=== PATIENT | male | born 1960 | race Caucasian/White ===

== ENCOUNTER 2020-11-10 10:52 | Outpatient (CLI) | payer OTHER, SELFPAY ==
--- NOTE | ~2020-11-10 | XR_ITS ---
EXAMINATION: XR foot LT min 3V EXAM DATE: 11/10/2020 11:29 INDICATION: No known recent injury provided at this time. Pain of the left foot. TECHNIQUE: Left foot dorsoplantar, lateral and oblique projections obtained and reviewed. There is n o prior study for comparison. FINDINGS: Left metatarsal bones unremarkable. There are no bony erosions identified. There is mild 1st metatarsophalangeal joint primary osteoarthritis. There are no acute fractures or dislocations id entified. There is no subcutaneous gas. The soft tissue is unremarkable. There are no radiopaque foreign bodies. No periosteal reaction or band of sclerosis to suggest subacute stress fracture. IMPRESSION: Mild left 1st MTP osteoarthritis. Reviewed, dictated and finalized at location A.
--- NOTE | ~2020-11-10 | CT_ITS ---
EXAMINATION: CT lung screening EXAM DATE: 11/10/2020 11:32 INDICATION: Tobacco use. TECHNIQUE: Spiral low dose CT of the chest without contrast. Axial, coronal and sagittal images were reviewed. The dose-length product (DLP) for this examination was 106.72 mGy-cm. The exposure was t ailored according to patient size (auto mA exposure control), and iterative reconstruction (ASIR) was used as additional dose reduction technique. Comparison is made to prior examination from 01/12/2018. FINDINGS: Biapical scarring unchanged. There is mild to moderate amount of irregular septal thickeni ng seen with peripheral bibasilar predominance and areas of groundglass opacity, more pronounced than in 2018. Likely chronic process, consistent with Nonspecific Interstitial Pneumonitis (NSIP) pattern interstitial lung disease with many possible underlying etiologies including collagen vascular disea se, medications/drugs, prior viral infection (such as COVID), hypersensitivity pneumonitis, idiopathi c etiologies. There is mild emphysema. Tracheobronchial tree is patent. There is no mediastinal, hilar or axillar y lymphadenopathy. There are no pleural or pericardial effusions. There is no pneumothorax. Francine gs are moderately hyperinflated. Narrow cardiac silhouette. No evidence of coronary arterial calcifi cation. Upper abdomen is unremarkable. There is mild thoracic spondylosis without osteoblastic or o steolytic lesions identified. IMPRESSION: 1. Lung-RADS category 1S, negative (<1%chance of malignancy); recommend continued LDCT screening in 1 year. 2. Mild to moderate NSIP pattern interstitial lung disease. Reviewed, dictated and finalized at location A. IMPRESSION: 1. Lung-RADS category 1S, negative (<1%chance of malignancy); recommend contin ued LDCT screening in 1 year. 2. Mild to moderate NSIP pattern interstitial lung disease.
--- NOTE | ~2020-11-10 | XR_ITS ---
EXAMINATION: XR chest 2V DATE: 11/10/2020 11:29 INDICATION: Tobacco use. Hypertension. TECHNIQUE: Frontal and lateral views of the chest were obtained. COMPARISON: Chest single view 01/11/2018, chest CT 11/10/2020 FINDINGS: There is mild scarring at the lung apices. There are reticular opacities in the lower lung zones. No pleural effusion or pneumothorax. The heart size is normal. There is an old healed right ri b fracture. IMPRESSION: 1. Reticular opacities in the lower lung zones, consistent with mild atelectasis versus chronic lung disease. 2. Stable mild scarring at the lung apices. Reviewed, dictated and finalized at location A. IMPRESSION: 1. Reticular opacities in the lower lung zones, consistent with mild atelectasi s versus chronic lung disease. 2. Stable mild scarring at the lung apices.
--- NOTE | ~2020-11-10 | XR_ITS ---
EXAMINATION: XR foot RT min 3V EXAM DATE: 11/10/2020 11:29 INDICATION: No known recent injury provided at this time. Pain of the right foot TECHNIQUE: Right foot dorsoplantar, lateral and oblique projections obtained and reviewed. There is no prior study for comparison. FINDINGS: Right metatarsal bones unremarkable. There is mild 1st metatarsophalangeal joint primary o steoarthritis. There are no bony erosions identified. There are no acute fractures or dislocations i dentified. There is no subcutaneous gas. The soft tissue is unremarkable. There are no radiopaque foreign bodies. IMPRESSION: Mild right 1st MTP osteoarthritis. Reviewed, dictated and finalized at location A.
== END 2020-11-10 10:53 | disposition home or self-care (01) ==
PROVIDERS: PCP Emergency Medicine; Visit Provider Emergency Medicine
DX: Z12.2 Encounter for screening for malignant neoplasm of respiratory organs (principal); Z87.891 Personal history of nicotine dependence; J84.9 Interstitial pulmonary disease, unspecified; M19.072 Primary osteoarthritis, left ankle and foot; M19.071 Primary osteoarthritis, right ankle and foot; R91.8 Other nonspecific abnormal finding of lung field
CPT/HCPCS: 71046; 71271; 73630

== ENCOUNTER → 2021-02-19 12:24 | Outpatient (CLI) | payer OTHER, SELFPAY ==
--- NOTE | ~2021-02-19 | XR_ITS ---
XR forearm LT 2V DATE: 02/19/2021 12:36 INDICATION: Posterior forearm bony nodule TECHNIQUE: AP and lateral views of the left forearm COMPARISON: None FINDINGS: No fracture or dislocation, periosteal reaction or bone destruction is detected. No other s ignificant bony or soft tissue abnormality of the left forearm. IMPRESSION: No significant bony or soft tissue abnormality of the left forearm Reviewed, dictated and finalized at location A.
== END ==
PROVIDERS: PCP Emergency Medicine; Visit Provider Emergency Medicine
DX: M85.831 Other specified disorders of bone density and structure, right forearm (principal)
CPT/HCPCS: 73090

== ENCOUNTER 2021-03-28 15:24 | Emergency (ER) | payer OTHER, SELFPAY ==
--- NOTE | ~2021-03-28 | XR_ITS ---
XR ankle RT min 3V DATE: 03/28/2021 16:19 INDICATION: Injury, swelling of right ankle TECHNIQUE: 4 views COMPARISON: None FINDINGS: There is mild medial soft tissue swelling of the ankle. No fracture or dislocation of the ankle or disruption of the ankle mortise is detected. No periosteal reaction or bone destruction. IMPRESSION: Mild medial soft tissue swelling; no fracture or dislocation Reviewed, dictated and finalized at location A.
--- NOTE | 2021-03-28 15:31 | ED.EXTPRO ---
HPI - Extremity Problem General Chief complaint: Extremity Injury, Lower Stated complaint: RIGHT FOOT PAIN Time Seen by Provider: 03/28/21 15:32 Source: patient and RN notes reviewed Mode of arrival: ambulatory Limitations: no limitations History of Present Illness HPI Narrative: 60-year-old male presents with concern for right ankle pain, redness, swelling. Reports a day ago he tripped on a rug injuring the ankle. Reports he recently got out of wearing a boot for heel spur. He denies any open skin, lacerations, abrasions. Denies intervention for the injury. MD Complaint: extremity pain Related Data Home Medications Medication Instructions Recorded Confirmed ergocalciferol (vitamin D2) 03/28/21 folic acid 03/28/21 hydrochlorothiazide 03/28/21 leflunomide mg 03/28/21 meloxicam 03/28/21 methotrexate sodium 03/28/21 Allergies Allergy/AdvReac Type Severity Reaction Status Date / Time No Known Allergies Allergy Verified 03/28/21 15:45 Review of Systems Review of Systems: CONSTITUTIONAL: Denies malaise, chills, sweats, or fever. SKIN: Denies abrasions, lacerations MUSCULOSKELETAL: Reports warmth, redness, swelling to the posterior right ankle, reports pain exacerbated by flexion and extension of the ankle, flexion and extension of the digits NEUROLOGIC: Denies numbness, weakness All systems reviewed & are unremarkable except as noted in HPI and below PMFSH Comments At time of signature, agree with nursing past medical, surgical, social and family history. There is no relevant family history pertinent to the presenting complaint Exam Narrative: GENERAL: Well-appearing, well-nourished, and in no acute distress. HEAD: Normocephalic, atraumatic. EYES: PERRLA, conjunctivae clear NECK: Supple. CHEST: Speaks in full sentences. No respiratory distress. HEART: Regular rate and rhythm. Normal and equal peripheral pulses. EXTREMITIES: Right ankle has normal strength and sensation, normal range of motion. Moderate posterior edema and erythema. No ecchymosis. 4/5 strength with ankle flexion and extension. Normal sensation with sensitivity to light touch and pain. Posterior ankle tenderness. No open wounds, no skin tenting, no devitalized tissue or atrophy, no trophic changes, no obvious deformity, alignment normal, nearby joints and structures intact. Distal pulses palpable and equal bilaterally, skin warm, dry, pink. Capillary refill less than 3 seconds. SKIN: Warm, dry, no rash. NEURO: Alert and oriented x3. PSYCH: Normal mood and affect Course Course Emergency Course: Patient is aware of diagnosis, understands and agrees to treatment plan. Anticipatory guidance given. Patient agrees to follow-up as directed and is aware of reasons to seek care at the emergency department. Portions of this record may have been created with voice recognition software Vital Signs Vital signs: Vital Signs Temperature 98.7 F 03/28/21 15:34 Pulse Rate 103 H 03/28/21 15:34 Respiratory Rate 18 03/28/21 15:34 Blood Pressure 152/84 H 03/28/21 15:34 Pulse Oximetry 97 03/28/21 15:34 Temperature 98.7 F 03/28/21 15:34 Pulse Rate 103 H 03/28/21 15:34 Respiratory Rate 18 03/28/21 15:34 Blood Pressure 152/84 H 03/28/21 15:34 Pulse Oximetry 97 03/28/21 15:34 Reviewed. MDM - Extremity (Nontraumatic) MDM Narrative Medical decision making narrative: Patients injury and pain is consistent with musculoskeletal etiology. No signs of neurological or vascular compromise on exam. Compartments and tissues are soft without signs of compartment syndrome. Pain is felt appropriate for further evaluation on an outpatient basis. Imaging Data My impression: Images reviewed, interpreted by radiologist, agree, see report. Radiologist's impression: XR ankle RT min 3V DATE: 03/28/2021 16:19 INDICATION: Injury, swelling of right ankle TECHNIQUE: 4 views COMPARISON: None FINDINGS: There is mild medial soft tiss
[2021-03-28 15:34] VITALS: BP 152/84; PULSE 103; RESP 18; TEMP 37.1; O2SAT 97
== END 2021-03-28 16:38 | disposition home or self-care (01) ==
PROVIDERS: Emergency Provider Nurse Practitioner; PCP Emergency Medicine
DX: M25.571 Pain in right ankle and joints of right foot (principal); I25.10 Atherosclerotic heart disease of native coronary artery without angina pectoris; E78.00 Pure hypercholesterolemia, unspecified; I10 Essential (primary) hypertension; I25.2 Old myocardial infarction; Z96.641 Presence of right artificial hip joint
CPT/HCPCS: 73610; 99213; G0463

== ENCOUNTER 2022-11-07 13:47 | Outpatient (CLI) | payer OTHER, SELFPAY ==
--- NOTE | ~2022-11-07 | US_ITS ---
EXAMINATION: US art doppler w press LE BI DATE: 11/07/2022 14:49 INDICATION: Poor circulation to the lower limbs which are cold to touch with swelling. Claudication. TECHNIQUE: Segmental pressures and plethysmographic and Doppler waveforms of the brachial and lower e xtremity arteries were obtained. COMPARISON: None. FINDINGS: Right and left brachial artery pressures of 149 mm Hg and 152 mm Hg, respectively, are concordant (no rmal difference <= 30 mmHg). The right and left high-thigh pressure indices are 1.07 and 1.16, respec tively (normal > 1.2). The right ankle-brachial index (ALESSIA) is 0.99 (normal >= 0.9-1). The right great toe-brachial index (T BI) is 0.78 (normal >= 0.6-0.8). The right lower extremity segmental pressure gradients are normal (n ormal gradients <= 20-30 mmHg between adjacent levels on the same leg or the same levels on the two l egs). Arterial waveforms are biphasic with brisk systolic upstrokes throughout the arteries of the ri ght lower limb. The left ALESSIA is 1.14. The left TBI is 0.38. The left lower extremity segmental pressure gradients are normal. Arterial waveforms are biphasic with brisk systolic upstrokes throughout the arteries of the left lower limb. IMPRESSION: 1. 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 2. No significant arterial occlusive disease to the right lower limb. Reviewed, dictated and finalized at location A. IMPRESSION: 1. 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 2. No significant arterial occlusive disease to the right lower limb.
== END 2022-11-07 13:48 | disposition home or self-care (01) ==
PROVIDERS: PCP Emergency Medicine; Visit Provider Emergency Medicine
DX: M79.661 Pain in right lower leg (principal); M79.662 Pain in left lower leg; I73.9 Peripheral vascular disease, unspecified
CPT/HCPCS: 93923

== ENCOUNTER 2022-11-14 13:55 | Outpatient (CLI) | payer OTHER, SELFPAY ==
--- NOTE | ~2022-11-14 | CT_ITS ---
EXAMINATION: CT lung screening DATE: 11/14/2022 14:11 INDICATION: History of nicotine dependence. TECHNIQUE: Computed tomography (CT) of the chest was performed without intravenous contrast. The dose -length product was 129.73 mGy-cm. Automated exposure control and iterative reconstruction technique were employed. COMPARISON: CT dated 11/10/2020 FINDINGS: No significant pleural or pericardial effusion. Mildly enlarged mediastinal lymph nodes, li allan reactive. Mild atherosclerosis. Heart size normal. Biapical pleural thickening/scarring. There a re peripheral interstitial changes, consistent with chronic interstitial fibrosis which has progresse d since prior examination. No pneumothorax. No endobronchial lesions. 2 mm pleural-based right upper lobe nodule, image 29. There is a 3 mm right lower lobe nodule, image 69, unchanged. Mild thoracic sp ondylosis. Mild emphysema. IMPRESSION: 1. Lung-RADS category 2: Benign appearance or behavior. Continue annual screening with noncontrast lo w-dose chest CT in 12 months. Reviewed, dictated and finalized at location L. IMPRESSION: 1. Lung-RADS category 2: Benign appearance or behavior. Continue annual screeni ng with noncontrast low-dose chest CT in 12 months.
== END 2022-11-14 13:56 | disposition home or self-care (01) ==
PROVIDERS: PCP Emergency Medicine; Visit Provider Emergency Medicine
DX: Z12.2 Encounter for screening for malignant neoplasm of respiratory organs (principal); Z87.891 Personal history of nicotine dependence
CPT/HCPCS: 71271